=== PATIENT | female | born 1965 | race African-American/Black ===

== ENCOUNTER 2016-12-22 01:36 | Emergency (ER) | payer MEDICARE, OTHER ==
[~2016-12-22] VITALS: Ht 152.4 cm; Wt 102.5 kg
[~2016-12-22 01:36] MED LIST: CYCL10TA2 PO; DIAZEPAM10 MG PO; DULO60CA6 PO; HYDR-2758 PO; PREG100C PO; PROP10TA PO
[2016-12-22 01:53] VITALS: BP 128/76
[2016-12-22] MEDS ORDERED: SULF1TAB24 PO (02:06)
--- NOTE | 2016-12-22 02:07 | PHYS DOC ---
Past Medical History Past Medical History: Anxiety, Bipolar, Depression, Other Additional Past Medical Histor: degeneratice disc disease, fibromyalgia, CHRONIC BACK PAIN,"ANGER PROBLEMS" Past Surgical History: Other Additional Past Surgical Histo: right knee, right ankle surgery, partial hyst Alcohol Use: None Drug Use: None Adult General Chief Complaint Chief Complaint: THUMB HPI HPI 51-year-old female presenting to the emergency department after sustaining an injury to her left thumb. She reports injuring it on a thorn while she was working in the garden. This occurred today around 10:00 this morning. It is associated with swelling. She does have mild pain that is nonradiating intermittent and without alleviating factors. She is been using ice intermittently. She also has developed a mild rash that she believes is poison oak or poison marin on her arms. Review of systems is negative for fevers chills cough nausea vomiting. All other review of systems is negative unless otherwise noted in history of present illness. Pertinent physical exam findings: The patient's left thumb has mild swelling of his thumb with mild erythema. No fluctuant masses present. No streaking. She also has a mild maculopapular rash on the upper extremities bilaterally consistent with contact dermatitis. Otherwise her exam is unremarkable. ED course: 51-year-old female presenting to the emergency department with an injury to her left thumb from a thorn. I recommended starting her on Bactrim. I did consider sporotrichosis given the mechanism of injury however at this time we will initiate antibiotic therapy as this is more likely. The patient was then discharged home in stable condition to follow up with their primary care physician over the next 2-3 days. They were to return if their symptoms worsened or if they were concerned for any reason. [id number] discharge instructions and return precautions were given. Patient's questions were answered to their satisfaction. Patient is comfortable plan. Review of Systems Review of Systems SEE ABOVE. Allergies Allergies Allergies Coded Allergies Type Severity Reaction Last Updated Verified No Known Drug Allergies 11/10/13 No Physical Exam Physical Exam Constitutional: Well developed, well nourished, no acute distress, non-toxic appearance. [] HENT: Normocephalic, atraumatic, bilateral external ears normal, oropharynx moist, no oral exudates, nose normal. [] Eyes: PERRLA, EOMI, conjunctiva normal, no discharge. [] Neck: Normal range of motion, no tenderness, supple, no stridor. [] Cardiovascular:Heart rate regular rhythm, no murmur [] Lungs & Thorax: Bilateral breath sounds clear to auscultation [] Abdomen: Bowel sounds normal, soft, no tenderness, no masses, no pulsatile masses. [] Skin: Warm, dry. see above Back: No tenderness, no CVA tenderness. [] Extremities: see above Neurologic: Alert and oriented X 3, normal motor function, normal sensory function, no focal deficits noted. [] Psychologic: Affect normal, judgement normal, mood normal. [] Current Patient Data Vital Signs Vital Signs Date Time Temp Pulse Resp B/P (MAP) Pulse Ox O2 Delivery O2 Flow Rate FiO2 12/22/16 01:53 97.6 81 20 128/76 (93) 96 Room Air 97.6 EKG EKG [] Radiology/Procedures Radiology/Procedures [] Course & Med Decision Making Course & Med Decision Making Pertinent Labs and Imaging studies reviewed. (See chart for details) [] Dragon Disclaimer Dragon Disclaimer This electronic medical record was generated, in whole or in part, using a voice recognition dictation system. Departure Departure Impression: Primary Impression: Cellulitis Additional Impression: Contact dermatitis Disposition: HOME, SELF-CARE Condition: STABLE Referrals: TAD COTA MD (PCP) Patient Instructions: Cellulitis, Contact Dermatitis Additional Instructions: Thank you for allowing us to participate in your care today. Followup with your primary care physician in 3 days if your symptoms do not improve. If you do not have a primary care provider you can ask for a list of our primary care providers. Return to the emergency department you have any new or concerning findings. This should be evaluated by the primary care physician and any necessary consulting services for continued management within a few days after discharge. Return to emergency room if you have any new or concerning symptoms including but not limited to fever, chills, nausea, vomiting, intractable pain, any new rashes, chest pain, shortness of air, uncontrolled bleeding, difficulty breathing, and/or vision loss. Scripts Sulfamethoxazole/Trimethoprim (BACTRIM DS TABLET) 1 Each Tablet 1 TAB PO BID, #14 TAB Prov: BRIDGETTE KELLY MD 12/22/16 Problem Qualifiers BRIDGETTE KELLY MD Dec 22, 2016 02:06
== END 2016-12-22 02:38 | disposition home or self-care (01) ==
LOC: ER 01:36
DX: L03.012 Cellulitis of left finger (principal); L25.9 Unspecified contact dermatitis, unspecified cause; F41.9 Anxiety disorder, unspecified; F31.9 Bipolar disorder, unspecified; M79.7 Fibromyalgia; G89.29 Other chronic pain
CPT/HCPCS: 99283

== ENCOUNTER → 2018-01-08 | Outpatient (CLI) | payer MEDICARE | END | disposition home or self-care (01) | LOC: MAMMO 10:30 | DX: Z12.31 Encounter for screening mammogram for malignant neoplasm of breast (principal) | CPT/HCPCS: 77063; 77067 ==

== ENCOUNTER → 2018-01-20 | Outpatient (CLI) | payer MEDICARE | END | disposition home or self-care (01) | LOC: RAD 11:47 | DX: M17.11 Unilateral primary osteoarthritis, right knee (principal); M94.261 Chondromalacia, right knee; M25.461 Effusion, right knee; M71.21 Synovial cyst of popliteal space [Baker], right knee | CPT/HCPCS: 73721; 77073 ==

== ENCOUNTER → 2018-01-30 | Outpatient (CLI) | payer MEDICARE | END | disposition home or self-care (01) | LOC: RAD 07:59 | DX: S83.281A Other tear of lateral meniscus, current injury, right knee, initial encounter (principal); S83.241A Other tear of medial meniscus, current injury, right knee, initial encounter; M17.11 Unilateral primary osteoarthritis, right knee; M71.21 Synovial cyst of popliteal space [Baker], right knee; M25.461 Effusion, right knee; X58.XXXA Exposure to other specified factors, initial encounter; Y93.89 Activity, other specified; Y92.89 Other specified places as the place of occurrence of the external cause; Y99.8 Other external cause status | CPT/HCPCS: 73721; 77073 ==

== ENCOUNTER → 2018-02-03 | Outpatient (CLI) | payer MEDICARE ==
[2018-02-03 08:44] LABS: ADD MAN DIFF? NO
[2018-02-03 08:48] LABS: BASO % 1 % (0-3); EOS # 0.3 x10^3/uL (0.0-0.7); EOS % 7 % (0-3); HEMATOCRIT 39.7 % (36.0-47.0); HEMOGLOBIN 13.6 g/dL (12.0-15.5); LYMPH # 2.1 x10^3/uL (1.0-4.8); LYMPH % 46 % (24-48); MEAN CORPUSCULAR HEMOGLOBIN 32 pg (25-35); MEAN CORPUSCULAR HGB CONC 34 g/dL (31-37); MEAN CORPUSCULAR VOLUME 93 fL (79-100); MONO # 0.6 x10^3/uL (0.0-1.1); MONO % 12 % (0-9); NEUT # 1.7 x10^3uL (1.8-7.7); NEUT % 35 % (31-73); PLATELET COUNT 226 x10^3/uL (140-400); RED BLOOD COUNT 4.25 x10^6/uL (3.50-5.40); RED CELL DISTRIBUTION WIDTH 14.3 % (11.5-14.5); WHITE BLOOD COUNT 4.7 x10^3/uL (4.0-11.0)
[2018-02-03 08:57] LABS: INR 0.9 (0.8-1.1); PARTIAL THROMBOPLASTIN TIME 23 SEC (24-38); PROTHROMBIN TIME PATIENT 11.6 SEC (11.7-14.0)
[2018-02-03 09:03] LABS: ALBUMIN 3.5 g/dL (3.4-5.0); ANION GAP 7 (6-14); BLOOD UREA NITROGEN 18 mg/dL (7-20); CALCIUM 8.7 mg/dL (8.5-10.1); CARBON DIOXIDE 28 mmol/L (21-32); CHLORIDE 103 mmol/L (98-107); CREATININE 0.8 mg/dL (0.6-1.0); GFR 90.8; GLUCOSE 76 mg/dL (70-99); POTASSIUM 4.3 mmol/L (3.5-5.1); SODIUM 138 mmol/L (136-145)
[2018-02-03 11:38] LABS: SEDIMENTATION RATE 10 (0-25)
[2018-02-03 12:54] LABS: BILIRUBIN,URINE NEGATIVE (NEG); CLARITY,URINE CLEAR; COLOR,URINE YELLOW; GLUCOSE,URINE NEGATIVE (NEG); NITRITE,URINE NEGATIVE (NEG); PH,URINE 5.5; PROTEIN,URINE NEGATIVE (NEG-TRACE); UROBILINOGEN,URINE 0.2 mg/dL (0.2 mg/dL)
[2018-02-03 13:01] LABS: BACTERIA,URINE 0 /HPF (0-FEW); RBC,URINE 0 /HPF (0-2); SQUAMOUS EPITHELIAL CELL,UR FEW /LPF; WBC,URINE OCC /HPF (0-4)
[2018-02-04 10:42] LABS: MRSA BY PCR Negative (Negative)
== END | disposition home or self-care (01) ==
LOC: SURGPAT 12:44
DX: Z01.818 Encounter for other preprocedural examination (principal); M17.0 Bilateral primary osteoarthritis of knee; I10 Essential (primary) hypertension; J84.10 Pulmonary fibrosis, unspecified
CPT/HCPCS: 36415; 71046; 80048; 81001; 82040; 85025; 85610; 85651; 85730; 87641

== ENCOUNTER 2019-12-11 14:26 | Emergency (ER) | payer MEDICARE ==
[~2019-12-11] VITALS: Ht 160 cm; Wt 91.8 kg
[~2019-12-11 14:26] MED LIST changes: +ACET500T68 PO; +GABA600T7 PO; -HYDR-2758 PO; +HYDR-2761 PO; +MULT-445 PO; +SULF1TAB24 PO
[2019-12-11 15:18] VITALS: BP 200/105
[2019-12-11 15:25] LABS: BASO % 1 % (0-3); EOS # 0.1 x10^3/uL (0.0-0.7); EOS % 2 % (0-3); HEMATOCRIT 44.2 % (36.0-47.0); HEMOGLOBIN 14.8 g/dL (12.0-15.5); LYMPH # 2.5 x10^3/uL (1.0-4.8); LYMPH % 44 % (24-48); MEAN CORPUSCULAR HEMOGLOBIN 31 pg (25-35); MEAN CORPUSCULAR HGB CONC 33 g/dL (31-37); MEAN CORPUSCULAR VOLUME 93 fL (79-100); MONO # 0.5 x10^3/uL (0.0-1.1); MONO % 10 % (0-9); NEUT # 2.5 x10^3/uL (1.8-7.7); NEUT % 43 % (31-73); PLATELET COUNT 284 x10^3/uL (140-400); RED BLOOD COUNT 4.73 x10^6/uL (3.50-5.40); RED CELL DISTRIBUTION WIDTH 14.5 % (11.5-14.5); WHITE BLOOD COUNT 5.7 x10^3/uL (4.0-11.0)
[2019-12-11 15:33] LABS: CALCIUM 9.2 mg/dL (8.5-10.1); GFR 69.7; POTASSIUM 4.5 mmol/L (3.5-5.1)
--- NOTE | 2019-12-11 15:34 | PHYS DOC ---
Past Medical History Past Medical History: Anxiety, Bipolar, Depression, Other Additional Past Medical Histor: degeneratice disc disease, fibromyalgia,CHRONIC BACK PAIN,"ANGER PROBLEMS" Past Surgical History: Oophorectomy, Other Additional Past Surgical Histo: right knee, right ankle surgery, partial hyst Smoking Status: Never Smoker Alcohol Use: Occasionally Drug Use: None General Adult EDM: Chief Complaint: MULTIPLE COMPLAINTS HPI: HPI: Patient is a 54 year old female who presents to the ED with a chief complaint of a dry cough for the last 3 days. Patient denies fever, chills, nausea, vomiting, diarrhea, dysuria, chest pain. Patient does state that she has a history of chronic back pain. Patient states that she is a former smoker but quit 30 years ago. Patient also states that she does not use breathing treatments at home. Patient does not use any oxygen at home. Review of Systems: Review of Systems: Constitutional: Denies fever or chills. [] Eyes: Denies change in visual acuity. [] HENT: Denies nasal congestion or sore throat. [] Respiratory: Complains of cough Cardiovascular: Denies chest pain or edema. [] GI: Denies abdominal pain, nausea, vomiting, bloody stools or diarrhea. [] : Denies dysuria. [] Musculoskeletal: Denies back pain or joint pain. [] Neurologic: Denies headache, focal weakness or sensory changes. [] Heart Score: Risk Factors: Risk Factors: DM, Current or recent (<one month) smoker, HTN, HLP, family history of CAD, obesity. Risk Scores: Score 0 - 3: 2.5% MACE over next 6 weeks - Discharge Home Score 4 - 6: 20.3% MACE over next 6 weeks - Admit for Clinical Observation Score 7 - 10: 72.7% MACE over next 6 weeks - Early Invasive Strategies Allergies: Allergies: Allergies Coded Allergies Type Severity Reaction Last Updated Verified No Known Medication Allergies Allergy Unknown 02/17/18 Yes ibuprofen Adverse Reaction Severe Nausea and Vomiting 02/17/18 Yes Physical Exam: PE: Constitutional: Well developed, well nourished, no acute distress, non-toxic appearance. [] HENT: Normocephalic, atraumatic Eyes: EOMI Neck: Normal range of motion, no tenderness, supple Cardiovascular:Heart rate regular rhythm, no murmur [] Lungs & Thorax: Bilateral breath sounds clear to auscultation [] Abdomen: Bowel sounds normal, soft, no tenderness Back: No tenderness, no CVA tenderness. [] Extremities: No tenderness, no cyanosis, no clubbing, ROM intact, no edema. [] Neurologic: Alert and oriented X 3 Current Patient Data: Labs: Laboratory Tests Test 12/11/19 15:15 White Blood Count 5.7 x10^3/uL (4.0-11.0) Red Blood Count 4.73 x10^6/uL (3.50-5.40) Hemoglobin 14.8 g/dL (12.0-15.5) Hematocrit 44.2 % (36.0-47.0) Mean Corpuscular Volume 93 fL (79-100) Mean Corpuscular Hemoglobin 31 pg (25-35) Mean Corpuscular Hemoglobin Concent 33 g/dL (31-37) Red Cell Distribution Width 14.5 % (11.5-14.5) Platelet Count 284 x10^3/uL (140-400) Neutrophils (%) (Auto) 43 % (31-73) Lymphocytes (%) (Auto) 44 % (24-48) Monocytes (%) (Auto) 10 % (0-9) H Eosinophils (%) (Auto) 2 % (0-3) Basophils (%) (Auto) 1 % (0-3) Neutrophils # (Auto) 2.5 x10^3/uL (1.8-7.7) Lymphocytes # (Auto) 2.5 x10^3/uL (1.0-4.8) Monocytes # (Auto) 0.5 x10^3/uL (0.0-1.1) Eosinophils # (Auto) 0.1 x10^3/uL (0.0-0.7) Basophils # (Auto) 0.0 x10^3/uL (0.0-0.2) Laboratory Tests 12/11/19 15:15 Vital Signs: Vital Signs Date Time Temp Pulse Resp B/P (MAP) Pulse Ox O2 Delivery O2 Flow Rate FiO2 12/11/19 14:35 97.1 85 20 166/79 (108) 100 Room Air 97.1 EKG: EKG: EKG interpretation: 14: 37 on 12/11/2019 HR: 87 Normal sinus rhythm Regular intervals Normal axis Nonspecific ST changes Radiology/Procedures: Radiology/Procedures: [] Course & Med Decision Making: Course & Med Decision Making Pertinent Labs and Imaging studies reviewed. (See chart for details) Ordered labs, chest x-ray, EKG, troponin Patient's vital signs stable in the ER. Patient is afebrile. EKG does not show any acute changes. Dragon Disclaimer: Dragon Disclaimer: This electronic medical record was generated, in whole or in part, using a voice recognition dictation system. Departure Departure Impression: Primary Impression: Bronchitis Disposition: 01 HOME, SELF-CARE Condition: STABLE Referrals: RAMESH DELACRUZ MD (PCP) Patient Instructions: Acute Bronchitis Additional Instructions: Please return to the ER if symptoms worsen or if any concerns. Please follow-up with your PCP in 1 to 2 days. Scripts Benzonatate (TESSALON PERLE) 100 Mg Capsule 1 CAP PO TID PRN for Cough for 5 Days, CAP Prov: SAÚL BONDS DO 12/11/19 SAÚL BONDS DO December 11, 2019 15:34
[2019-12-11 15:39] LABS: ALBUMIN 3.8 g/dL (3.4-5.0); ALBUMIN/GLOBULIN RATIO 1.2 (1.0-1.7); TOTAL BILIRUBIN 0.4 mg/dL (0.2-1.0); TOTAL PROTEIN 7.1 g/dL (6.4-8.2)
--- NOTE | 2019-12-11 16:34 | RAD ---
AP chest. HISTORY: Cough AP view was taken of the chest. There is a granuloma on the right. Lungs are clear. Heart is normal in size. There is no effusion. There is hypertrophic change in the spine. IMPRESSION: 1. No acute chest disease. Electronically signed by: Madi Wakefield MD (12/11/2019 4:31 PM) [id number]
[2019-12-11] MEDS ORDERED: BENZ100C PO (16:42)
--- NOTE | 2019-12-13 10:23 | EKG ---
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
== END 2019-12-11 16:48 | disposition home or self-care (01) ==
LOC: ER 14:26
DX: J40 Bronchitis, not specified as acute or chronic (principal); M54.9 Dorsalgia, unspecified; F41.9 Anxiety disorder, unspecified; F32.9 Major depressive disorder, single episode, unspecified; M79.7 Fibromyalgia; G89.29 Other chronic pain; Z90.89 Acquired absence of other organs; Z98.890 Other specified postprocedural states; Z88.6 Allergy status to analgesic agent
CPT/HCPCS: 36415; 71045; 80053; 84484; 85025; 93005; 99285; U0003-CS

== ENCOUNTER 2020-03-17 16:10 | Emergency (ER) | payer MEDICARE ==
[~2020-03-17] VITALS: Ht 165.1 cm; Wt 95.5 kg
[~2020-03-17 16:10] MED LIST changes: +BENZ100C PO
[2020-03-17 16:51] LABS: BASO # 0.1 x10^3/uL (0.0-0.2); BASO % 2 % (0-3); EOS # 0.2 x10^3/uL (0.0-0.7); EOS % 5 % (0-3); HEMATOCRIT 41.5 % (36.0-47.0); LYMPH # 2.7 x10^3/uL (1.0-4.8); LYMPH % 62 % (24-48); MEAN CORPUSCULAR HEMOGLOBIN 32 pg (25-35); MEAN CORPUSCULAR HGB CONC 34 g/dL (31-37); MEAN CORPUSCULAR VOLUME 95 fL (79-100); MONO # 0.4 x10^3/uL (0.0-1.1); MONO % 10 % (0-9); NEUT # 0.9 x10^3/uL (1.8-7.7); NEUT % 22 % (31-73); PLATELET COUNT 288 x10^3/uL (140-400); RED BLOOD COUNT 4.38 x10^6/uL (3.50-5.40); RED CELL DISTRIBUTION WIDTH 14.3 % (11.5-14.5); WHITE BLOOD COUNT 4.3 x10^3/uL (4.0-11.0)
[2020-03-17 16:59] LABS: PROTHROMBIN TIME PATIENT 12.3 SEC (11.7-14.0)
[2020-03-17 17:03] LABS: CALCIUM 8.5 mg/dL (8.5-10.1); CREATININE 0.9 mg/dL (0.6-1.0); GFR 78.7; POTASSIUM 4.4 mmol/L (3.5-5.1)
[2020-03-17 17:04] LABS: D-DIMER 0.57 ug/mlFEU (0.00-0.50)
--- NOTE | 2020-03-17 17:09 | RAD ---
EXAM: CT Head without IV contrast INDICATION: Reason: syncopal episode / Spl. Instructions: / History: TECHNIQUE: Multi-detector row CT images were obtained of the head without the use of IV contrast. All CT scans performed at this facility utilize dose optimization techniques as appropriate to the exam, including the following: Automated exposure control and adjustment of the mA and/or KV according to patient size (this includes techniques or standardized protocols for targeted exams where dose is indication/reason for exam). COMPARISON: None FINDINGS: BRAIN PARENCHYMA: No evidence of acute intraparenchymal hemorrhage or infarct. Mild generalized parenchymal volume loss and white matter low density compatible with chronic ischemic microvascular changes present. VENTRICLES & EXTRA-AXIAL SPACES: Ventricles are within normal limits. Basilar cisterns are patent. No pathologic extra-axial fluid collection or mass. ORBITS: Orbital contents are unremarkable. SINUSES: Visualized paranasal sinuses and mastoid air cells are clear. OSSEOUS & SOFT TISSUES: Calvarium and skull base are intact. IMPRESSION: No acute intracranial pathology. Electronically signed by: Jameel Mar MD (03/17/2020 5:06 PM) [id number]
[2020-03-17 17:19] LABS: ALBUMIN 3.6 g/dL (3.4-5.0); ALBUMIN/GLOBULIN RATIO 1.1 (1.0-1.7); C-REACTIVE PROTEIN 3.3 mg/L (0-3.3); MAGNESIUM 2.5 mg/dL (1.8-2.4); TOTAL BILIRUBIN 0.5 mg/dL (0.2-1.0); TOTAL PROTEIN 6.8 g/dL (6.4-8.2)
--- NOTE | 2020-03-17 17:20 | RAD ---
CHEST AP ONLY History: Reason: chest pain / Spl. Instructions: / History: Comparison: December 11, 2019 Findings: Hazy appearance of the left lung compared to the right likely due to technique. No consolidation or pleural effusion. No pneumothorax. Normal heart size. Calcified right midlung nodule, likely prior granulomatous disease, unchanged. Impression: 1. Hazy appearance of the left lung compared to the right likely due to technique. PA and lateral view of the chest can better assess if clinically indicated. Electronically signed by: Landry Hall DO (03/17/2020 5:17 PM) [id number]
[2020-03-17 17:22] LABS: % BASOS 1 % (0-3); % EOS 5 % (0-5); % LYMPHS 58 % (24-48); % MONOS 10 % (0-10); % SEGS 26 % (35-66); PLT ESTIMATE ADEQUATE (ADEQUATE)
--- NOTE | 2020-03-17 17:36 | PHYS DOC ---
Past Medical History Past Medical History: Anxiety, Bipolar, Depression, Other Additional Past Medical Histor: degeneratice disc disease, fibromyalgia,CHRONIC BACK PAIN,"ANGER PROBLEMS" Past Surgical History: Oophorectomy, Other Additional Past Surgical Histo: right knee, right ankle surgery, partial hyst Smoking Status: Never Smoker Alcohol Use: Occasionally Drug Use: None General Adult EDM: Chief Complaint: SYNCOPE HPI: HPI: Patient is a 54 year old AA female who presents to the ER for evaluation after a syncopal episode. Per EMS pt was being ticketed for stealing at [employer] when she passed out. Pt states she is unsure of what happened. Patient is refusing to answer the majority of my questions therefore the HPI is limited. She denies any recent fever, cough, shortness of breath, headache, chest pain, nausea, or vomiting. Review of Systems: Review of Systems: Constitutional: Denies fever or chills. [] Eyes: Denies change in visual acuity. [] HENT: Denies nasal congestion or sore throat. [] Respiratory: Denies cough or shortness of breath. [] Cardiovascular: Denies chest pain GI: Denies abdominal pain, nausea, vomiting, or diarrhea. [] Musculoskeletal: Denies back pain or joint pain. [] Neurologic: See HPI Psychiatric: Denies depression or anxiety. [] Heart Score: Risk Factors: Risk Factors: DM, Current or recent (<one month) smoker, HTN, HLP, family hi story of CAD, obesity. Risk Scores: Score 0 - 3: 2.5% MACE over next 6 weeks - Discharge Home Score 4 - 6: 20.3% MACE over next 6 weeks - Admit for Clinical Observation Score 7 - 10: 72.7% MACE over next 6 weeks - Early Invasive Strategies Allergies: Allergies: Allergies Coded Allergies Type Severity Reaction Last Updated Verified No Known Medication Allergies Allergy Unknown 02/17/18 Yes ibuprofen Adverse Reaction Severe Nausea and Vomiting 02/17/18 Yes Physical Exam: PE: Constitutional: Well developed, well nourished, no acute distress, non-toxic appearance. [] HENT: Normocephalic, atraumatic, bilateral external ears normal, oropharynx moist, no oral exudates, nose normal. [] Eyes: PERRLA, conjunctiva injected, no discharge. [] Neck: Normal range of motion, no stridor. [] Cardiovascular:Heart rate regular rhythm, no murmur [] Lungs & Thorax: Bilateral breath sounds clear to auscultation, lungs CTA [] Abdomen: soft, no tenderness, no masses, no pulsatile masses. [] Skin: Warm, dry, no erythema, no rash. [] Back: No tenderness, no CVA tenderness. [] Extremities: No cyanosis, no clubbing, ROM intact, no edema. [] Neurologic: Alert and oriented X 3, normal motor function, normal sensory function, no focal deficits noted. [] Psychologic: Affect normal, judgement normal, mood normal. [] Current Patient Data: Labs: Laboratory Tests Test 03/17/20 16:30 White Blood Count 4.3 x10^3/uL (4.0-11.0) Red Blood Count 4.38 x10^6/uL (3.50-5.40) Hemoglobin 14.0 g/dL (12.0-15.5) Hematocrit 41.5 % (36.0-47.0) Mean Corpuscular Volume 95 fL (79-100) Mean Corpuscular Hemoglobin 32 pg (25-35) Mean Corpuscular Hemoglobin Concent 34 g/dL (31-37) Red Cell Distribution Width 14.3 % (11.5-14.5) Platelet Count 288 x10^3/uL (140-400) Neutrophils (%) (Auto) 22 % (31-73) L Lymphocytes (%) (Auto) 62 % (24-48) H Monocytes (%) (Auto) 10 % (0-9) H Eosinophils (%) (Auto) 5 % (0-3) H Basophils (%) (Auto) 2 % (0-3) Neutrophils # (Auto) 0.9 x10^3/uL (1.8-7.7) L Lymphocytes # (Auto) 2.7 x10^3/uL (1.0-4.8) Monocytes # (Auto) 0.4 x10^3/uL (0.0-1.1) Eosinophils # (Auto) 0.2 x10^3/uL (0.0-0.7) Basophils # (Auto) 0.1 x10^3/uL (0.0-0.2) Segmented Neutrophils % 26 % (35-66) L Lymphocytes % 58 % (24-48) H Monocytes % 10 % (0-10) Eosinophils % 5 % (0-5) Basophils % 1 % (0-3) Platelet Estimate Adequate (ADEQUATE) Prothrombin Time 12.3 SEC (11.7-14.0) Prothrombin Time INR 1.0 (0.8-1.1) Activated Partial Thromboplast Time 24 SEC (24-38) D-Dimer (Yessica) 0.57 ug/mlFEU (0.00-0.50) H Sodium Level 142 mmol/L (136-145) Potassium Level 4.4 mmol/L (3.5-5.1) Chloride Level 105 mmol/L (98-107) Carbon Dioxide Level 27 mmol/L (21-32) Anion Gap 10 (6-14) Blood Urea Nitrogen 11 mg/dL (7-20) Creatinine 0.9 mg/dL (0.6-1.0) Estimated GFR (Cockcroft-Gault) 78.7 BUN/Creatinine Ratio 12 (6-20) Glucose Level 80 mg/dL (70-99) Calcium Level 8.5 mg/dL (8.5-10.1) Magnesium Level 2.5 mg/dL (1.8-2.4) H Ferritin 121 ng/mL (8-252) Total Bilirubin 0.5 mg/dL (0.2-1.0) Aspartate Amino Transferase (AST) 34 U/L (15-37) Alanine Aminotransferase (ALT) 30 U/L (14-59) Alkaline Phosphatase 55 U/L (46-116) Creatine Kinase 173 U/L (26-192) Creatine Kinase MB (Mass) 1.8 ng/mL (0.0-3.6) Creatine Kinase MB Relative Index 1.0 % (0-4) Troponin I Quantitative < 0.017 ng/mL (0.000-0.055) C-Reactive Protein, Quantitative 3.3 mg/L (0-3.3) Total Protein 6.8 g/dL (6.4-8.2) Albumin 3.6 g/dL (3.4-5.0) Albumin/Globulin Ratio 1.1 (1.0-1.7) Lipase 108 U/L (73-393) Laboratory Tests 03/17/20 16:30 Laboratory Tests 03/17/20 16:30 Vital Signs: Vital Signs Date Time Temp Pulse Resp B/P (MAP) Pulse Ox O2 Delivery O2 Flow Rate FiO2 03/17/20 16:11 98.2 100 13 134/65 (88) 98 Room Air 98.2 EKG: EK-sinus rhythm, rate 98, normal EKG, read by Dr. Paez[] Radiology/Procedures: Radiology/Procedures: []PROCEDURE: CT HEAD WO CONTRAST EXAM: CT Head without IV contrast INDICATION: Reason: syncopal episode / Spl. Instructions: / History: TECHNIQUE: Multi-detector row CT images were obtained of the head without the use of IV contrast. All CT scans performed at this facility utilize dose optimization techniques as appropriate to the exam, including the following: Automated exposure control and adjustment of the mA and/or KV according to patient size (this includes techniques or standardized protocols for targeted exams where dose is indication/reason for exam). COMPARISON: None FINDINGS: BRAIN PARENCHYMA: No evidence of acute intraparenchymal hemorrhage or infarct. Mild generalized parenchymal volume loss and white matter low density compatible with chronic ischemic microvascular changes present. VENTRICLES & EXTRA-AXIAL SPACES: Ventricles are within normal limits. Basilar cisterns are patent. No pathologic extra-axial fluid collection or mass. ORBITS: Orbital contents are unremarkable. SINUSES: Visualized paranasal sinuses and mastoid air cells are clear. OSSEOUS & SOFT TISSUES: Calvarium and skull base are intact. IMPRESSION: No acute intracranial pathology. PROCEDURE: CHEST AP ONLY CHEST AP ONLY History: Reason: chest pain / Spl. Instructions: / History: Comparison: December 11, 2019 Findings: Hazy appearance of the left lung compared to the right likely due to technique. No consolidation or pleural effusion. No pneumothorax. Normal heart size. Calcified right midlung nodule, likely prior granulomatous disease, unchanged. Impression: 1. Hazy appearance of the left lung compared to the right likely due to technique. PA and lateral view of the chest can better assess if clinically indicated. [] Course & Med Decision Making: Course & Med Decision Making Pertinent Labs and Imaging studies reviewed. (See chart for details) 54-year-old female presents to the emergency department following a syncopal episode while being confronted about shoplifting today. CBC, CMP were unremarkable, the patient's d-dimer was elevated at 0.57; UA was unremarkable; UDS was positive for opiates and alcohol. CT patient's head revealed no acute findings, chest x-ray had a hazy appearance likely due to technique. The patient refused a CT of her chest after I informed her of her elevated d- dimer. The patient states she wanted to leave right now she did not want to continue her treatment. I told the patient she would have to sign out AMA;. I advised the patient that she may have a blood clot in her lung that could be why she passed out patient reports if she feels worse she will return. Swathi Disclaimer: Swathi Disclaimer: This electronic medical record was generated, in whole or in part, using a voice recognition dictation system. Departure Departure Impression: Primary Impression: Left against medical advice Disposition: 07 AGAINST MEDICAL ADVICE Condition: STABLE Referrals: RAMESH DELACRUZ MD (PCP) Justicifation of Admission Dx: Justifications for Admission: Justification of Admission Dx: N/A SHAUNA JASSO APRN Mar 17, 2020 17:36
--- NOTE | 2020-03-17 17:36 | EKG ---
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
[2020-03-17 17:49] LABS: BILIRUBIN,URINE NEGATIVE (NEG); CLARITY,URINE CLEAR; COLOR,URINE YELLOW; NITRITE,URINE NEGATIVE (NEG); PH,URINE 6.5 (<5.0-8.0); PROTEIN,URINE NEGATIVE (NEG-TRACE); UROBILINOGEN,URINE 0.2 mg/dL (0.2 mg/dL)
[2020-03-17 17:54] LABS: BARBITURATES NEG (NEG); BENZODIAZEPINES NEG (NEG); CANNABINOIDS NEG (NEG); COCAINE NEG (NEG); METHADONE NEG (NEG); OPIATES POS (NEG); PHENCYCLIDINE NEG (NEG)
[2020-03-17 17:55] LABS: AMPHETAMINE/METHAMPHETAMINE NEG (NEG)
[2020-03-17 17:56] LABS: BACTERIA,URINE 0 /HPF (0-FEW); HYALINE CASTS, URINE FEW /HPF; RBC,URINE OCC /HPF (0-2); SQUAMOUS EPITHELIAL CELL,UR FEW /LPF; WBC,URINE OCC /HPF (0-4)
[2020-03-17 18:08] VITALS: BP 122/71
[2020-03-17] MEDS ORDERED: IOHEXOL 350 MG/ML 100 ML VIAL. IV ONE (18:15)
== END 2020-03-17 18:28 | disposition left against medical advice (07) ==
LOC: ER 16:10
DX: R55 Syncope and collapse (principal); F41.9 Anxiety disorder, unspecified; F32.9 Major depressive disorder, single episode, unspecified; G89.29 Other chronic pain; M79.7 Fibromyalgia; Z90.89 Acquired absence of other organs; Z98.890 Other specified postprocedural states; Z88.6 Allergy status to analgesic agent
CPT/HCPCS: 36415; 70450; 71045; 80053; 80307; 81001; 82553; 82728; 83690; 83735; 84484; 85007; 85025; 85379; 85610; 85730; 86140; 93005; 99285

== ENCOUNTER → 2021-01-18 | Outpatient (CLI) | payer MEDICARE ==
--- NOTE | 2021-01-18 15:48 | RAD ---
[facility] BILAT SCREEN+ELENO 01/18/2021 9:45 AM INDICATION: Asymptomatic screening mammogram. COMPARISON: 01/08/2018 TECHNIQUE: 3D tomosynthesis was performed in CC and MLO projections. 2D views were obtained from the 3D data. CAD was utilized as needed. FINDINGS: Breast density: Category B: There are scattered areas of fibroglandular density. Right breast: There are no suspicious microcalcifications, masses or areas of architectural distortio n. Left breast: There are no suspicious microcalcifications, masses or areas of architectural distortion . Bilateral mammogram is compared to prior examinations appears unchanged. IMPRESSION: Negative bilateral mammogram. BI-RADS category: 1; Negative Recommendations: Recommend annual screening mammography in one year. Electronically signed by: Tanika Navarro MD (01/18/2021 3:45 PM) [id number]
== END ==
LOC: MAMMO 09:40
PROVIDERS: ATTEND Family Medicine
DX: Z12.31 Encounter for screening mammogram for malignant neoplasm of breast (principal)
CPT/HCPCS: 77063; 77067

== ENCOUNTER 2021-06-26 15:24 | Emergency (ER) | payer MEDICARE ==
[~2021-06-26] VITALS: Ht 160 cm; Wt 79.5 kg
[~2021-06-26 15:24] MED LIST changes: +CYCL10TA19 PO; -CYCL10TA2 PO; -DULO60CA6 PO; +DULO60CA7 PO
[2021-06-26] MEDS ORDERED: IV NORMAL SALINE 1000ML BAG 1,000 ML IV SCH (15:45)
--- NOTE | 2021-06-26 16:06 | PHYS DOC ---
Past Medical History Past Medical History: Anxiety, Bipolar, Depression, Other Additional Past Medical Histor: degeneratice disc disease, fibromyalgia,CHRONIC BACK PAIN,"ANGER PROBLEMS" Past Surgical History: Oophorectomy, Other Additional Past Surgical Histo: right knee, right ankle surgery, partial hyst Smoking Status: Never Smoker Alcohol Use: Heavy Additional Information: reports drinking 2-3 times weekly Drug Use: None Social History Narrative: denies General Adult EDM: Chief Complaint: ALCOHOL INTOXICATION HPI: HPI: Patient is a 56-year-old female who presents to the emergency department via EMS following a fall. Per EMS patient was getting out of her car in the [employer] parking lot when she fell. She is unsure if she lost consciousness. She is admitting to drinking 1 pint of alcohol today. She denies any blood thinners. Patient is sleepy in the emergency department and is responsive to painful stimulation. It appears that patient has a hematoma and small abrasion to her left eyebrow and cheek. Patient does not recall falling and is unsure of how she fell. Patient denies any vomiting, neck or back pain. Review of Systems: Review of Systems: HENT: See HPI GI: See HPI Musculoskeletal: See HPI Integument: See HPI Neurologic: See HPI Heart Score: C/O Chest Pain: N/A Risk Factors: Risk Factors: DM, Current or recent (<one month) smoker, HTN, HLP, family history of CAD, obesity. Risk Scores: Score 0 - 3: 2.5% MACE over next 6 weeks - Discharge Home Score 4 - 6: 20.3% MACE over next 6 weeks - Admit for Clinical Observation Score 7 - 10: 72.7% MACE over next 6 weeks - Early Invasive Strategies Current Medications: Current Medications Medications (Trade) Dose Ordered Sig/David Start Time Stop Time Status Last Admin Dose Admin Sodium Chloride 1,000 ml @ 1,000 mls/hr Q1H 06/26/21 15:45 06/26/21 16:44 Allergies: Allergies: Allergies Coded Allergies Type Severity Reaction Last Updated Verified ibuprofen Adverse Reaction Severe Nausea and Vomiting 02/17/18 Yes valdecoxib Adverse Reaction Intermediate NAUSEA, VOMITING 06/26/21 Yes Physical Exam: PE: Constitutional: Well developed, well nourished, no acute distress, non-toxic appearance. [] HENT: Normocephalic, atraumatic, bilateral external ears normal, oropharynx moist, no oral exudates, nose normal. [] Eyes: PERRL, EOMI, conjunctiva normal, no discharge. [] Neck: Normal range of motion, no bony spinal tenderness, no step-offs or deformities, supple, no stridor. [] Cardiovascular:Heart rate regular rhythm, no murmur [] Lungs & Thorax: Bilateral breath sounds clear to auscultation [] Abdomen: Bowel sounds normal, soft, no tenderness, no masses, no pulsatile masses. [] Skin: Warm, dry, no erythema, no rash. [] Back: No bony spinal tenderness, normal range of motion Extremities: No tenderness, no cyanosis, no clubbing, ROM intact, no edema, no pain with palpation of major joints, no pain with palpation of pelvis or hips. [] Neurologic: Alert and oriented X 3,GCS: 13, normal motor function, normal sensory function, no focal deficits noted, patient moving all 4 extremities equally. [] Psychologic: Affect normal, judgement normal, mood normal. [] Current Patient Data: Labs: Laboratory Tests Test 06/26/21 17:05 06/26/21 17:20 06/26/21 17:40 White Blood Count 6.4 x10^3/uL Red Blood Count 4.20 x10^6/uL Hemoglobin 14.0 g/dL Hematocrit 41.3 % Mean Corpuscular Volume 98 fL Mean Corpuscular Hemoglobin 33 pg Mean Corpuscular Hemoglobin Concent 34 g/dL Red Cell Distribution Width 14.2 % Platelet Count 251 x10^3/uL Neutrophils (%) (Auto) 60 % Lymphocytes (%) (Auto) 29 % Monocytes (%) (Auto) 9 % Eosinophils (%) (Auto) 2 % Basophils (%) (Auto) 1 % Neutrophils # (Auto) 3.8 x10^3/uL Lymphocytes # (Auto) 1.8 x10^3/uL Monocytes # (Auto) 0.6 x10^3/uL Eosinophils # (Auto) 0.1 x10^3/uL Basophils # (Auto) 0.1 x10^3/uL Urine Collection Type Unknown Urine Color Yellow Urine Clarity Turbid Urine pH 6.0 Urine Specific [place] 1.010 Urine Protein Negative mg/dL Urine Glucose (UA) Negative mg/dL Urine Ketones (Stick) Negative mg/dL Urine Blood Negative Urine Nitrite Negative Urine Bilirubin Negative Urine Urobilinogen Dipstick 0.2 mg/dL Urine Leukocyte Esterase Trace Urine RBC 0 /HPF Urine WBC 1-4 /HPF Urine Squamous Epithelial Cells Few /LPF Urine Bacteria 0 /HPF Urine Hyaline Casts Few /HPF Urine Mucus Slight /LPF Urine Opiates Screen Pos Urine Methadone Screen Neg Urine Barbiturates Neg Urine Phencyclidine Screen Neg Urine Amphetamine/Methamphetamine Neg Urine Benzodiazepines Screen Neg Urine Cocaine Screen Neg Urine Cannabinoids Screen Neg Urine Ethyl Alcohol Pos Sodium Level 144 mmol/L Potassium Level 3.8 mmol/L Chloride Level 104 mmol/L Carbon Dioxide Level 26 mmol/L Anion Gap 14 Blood Urea Nitrogen 9 mg/dL Creatinine 0.9 mg/dL Estimated GFR (Cockcroft-Gault) 78.1 BUN/Creatinine Ratio 10 Glucose Level 81 mg/dL Calcium Level 8.8 mg/dL Total Bilirubin 0.2 mg/dL Aspartate Amino Transf (AST/SGOT) 31 U/L Alanine Aminotransferase (ALT/SGPT) 34 U/L Alkaline Phosphatase 61 U/L Troponin I High Sensitivity 6 ng/L Total Protein 6.8 g/dL Albumin 3.5 g/dL Albumin/Globulin Ratio 1.1 Ethyl Alcohol Level 239 mg/dL Current Medications Medications (Trade) Dose Ordered Sig/David Route PRN Reason Start Time Stop Time Status Last Admin Dose Admin Sodium Chloride 1,000 ml @ 1,000 mls/hr Q1H IV 06/26/21 15:45 06/26/21 16:44 DC 06/26/21 17:09 Vital Signs: Vital Signs Date Time Temp Pulse Resp B/P (MAP) Pulse Ox O2 Delivery O2 Flow Rate FiO2 06/26/21 15:43 98.3 82 20 127/67 (87) 94 Room Air 98.3 EKG: EKG: [] EKG performed by ER staff at 1736 shows sinus rhythm with a rate of 71, QTc of 442, no STEMI read by Dr. Alvarez at 1737. Radiology/Procedures: Radiology/Procedures: []PROCEDURE: PORTABLE CHEST 1V Single AP view of the chest. Comparison: 03/17/2020. Indication: Fall Findings: The heart is not enlarged. There is no pneumothorax or effusion. No air space or interstitial disease. Impression: 1. No acute cardiopulmonary process. Electronically signed by: Bernard Marks MD (06/26/2021 4:08 PM) [facility] DICTATED and SIGNED BY: BERNARD MARKS MD DATE: 06/26/21 [id number] PROCEDURE: CT HEAD AND CERVICAL SPINE WO CT HEAD AND C-SPINE WO, CT MAXILLOFACIAL WITHOUT CONTRAST Date: 06/26/2021 3:46 PM Clinical Indication: Reason: fall, ams / Spl. Instructions: / History: Comparison: CT head from 03/17/2020. Technique: Axial computed tomographic images were obtained of the head, maxillofacial structures, and cervical spine without contrast. Multiplanar reconstructions were performed. One or more of the following dose reduction techniques were utilized: Automated exposure control (AEC), Adjustment of mA and/or kV according to patient size, Use of iterative reconstruction technique such as ASiR, CT scan done according to ALARA and image gently/image wisely CT Head Findings: Mild generalized cerebral and cerebellar volume loss. Mild nonspecific periventricular hypoattenuation, most commonly seen with chronic small vessel ischemic disease. No intra- or extra-axial mass or fluid collection. No acute hemorrhage. The ventricles are normal in size, shape, and morphology. The bolden-white matter junction is normal. The basilar cisterns are patent. The mastoid air cells are clear. No aggressive osseous lesion or fracture. CT Face Findings: There is no acute facial bone fracture. There is a contusion/hematoma involving the left forehead and left upper eyelid. The left orbit/globe is unremarkable. The paranasal sinuses are clear. The right orbit is normal. The globes are intact. CT Cervical Spine Findings: The cervical spine is normally aligned. No acute fracture. No aggressive lytic or blastic osseous lesions. Mild to moderate multilevel degenerative disc space height loss. Multilevel mild spinal canal stenosis secondary to disc protrusions and marginal osteophytes. Multilevel mild to moderate neuroforaminal narrowing secondary to uncovertebral arthrosis. Multilevel mild to moderate facet arthrosis. The thyroid gland is normal. No cervical lymphadenopathy. Bilateral carotid atherosclerosis. The visualized aerodigestive tract is normal. The visualized portions of the lungs are clear. Impression: 1. No acute intracranial process. Soft tissue contusion/hematoma overlying the left forehead and left upper eyelid. 2. No acute facial bone fracture. 3. No acute osseous abnormality of the cervical spine Electronically signed by: Edward Gonzales DO (06/26/2021 4:22 PM) [facility] DICTATED and SIGNED BY: EDWARD GONZALES DO DATE: 06/26/21 [id number] Course & Med Decision Making: Course & Med Decision Making Pertinent Labs and Imaging studies reviewed. (See chart for details) Patient presents to the emergency department for a fall. Patient is unsure if she had a loss of consciousness, admits to 1 pint of alcohol today, no blood thinner use. Patient has a hematoma to her left for head proximal to her eyebrow and abrasions to her eyebrow and cheek. Work-up in the ER consisted of blood work, EKG, chest x-ray and CT imaging of head and neck. Imaging showed no acute findings. 173: ER nurse states that patient is reporting suicidal ideation. Patient states "I will find a way to hurt myself at home". Patient does not have a specific plan and has not attempted to hurt herself today. PAT Team consulted. 1818: CBC unremarkable, CMP unremarkable, urinalysis shows trace leuks, 1-4 whit e blood cells and no bacteria but squamous cells are noted likely contaminated. Patient's alcohol level was 239, patient was already treated with a liter of normal saline. Patient medically cleared at this time and will be evaluated by the psychiatric assessment team. 182: Upon reevaluation of patient she is alert and oriented x4 GCS of 15. Patient was notified on plan of care and psychiatric assessment team consultation. Patient states "I want to go home". I notified patient that she cannot go home because she stated that she wanted to hurt herself patient states "I do not want to hurt myself, I just want to go home and lay in bed and want to , whatever happens happens". 1999 : Patient evaluated by the psychiatric assessment team, safety plan was de veloped with patient and a member of the psychiatric assessment team. Patient to adhere with the safety plan and she was given resources to follow-up. I discussed with patient all findings and diagnostic testing as well as the need to follow-up with PCP for further evaluation and treatment or return to the ER if any new or worsening symptoms. Strict return precautions were also discussed at length. Patient voiced understanding and agreement with the plan. Patient is hemodynamically stable at the time of disposition. Dragon Disclaimer: Dragon Disclaimer: This electronic medical record was generated, in whole or in part, using a voice recognition dictation system. Departure Departure Impression: Primary Impression: Head injury Qualified Codes: S09.90XA - Unspecified injury of head, initial encounter Additional Impressions: Alcohol intoxication Qualified Codes: F10.920 - Alcohol use, unspecified with intoxication, uncomplicated Suicidal ideation Disposition: HOME / SELF CARE / HOMELESS Condition: GOOD Referrals: RAMESH DELACRUZ MD (PCP) Patient Instructions: Alcohol Intoxication, [id number], Head Injury, Adult, Suicidal Feelings, How to Help Yourself Additional Instructions: He was seen in the emergency department today for alcohol intoxication, fall and suicidal ideation. Please discontinue drinking alcohol. You should not drive a vehicle while you are drinking any alcohol. Imaging was performed of your head and neck that showed no acute findings. You have an abrasion to your left forehead as well as a hematoma. Please keep this abrasion clean and dry. Please apply ice to your hematoma. Please monitor the abrasion for any signs of infection including redness, warmth, swelling or drainage. You can take Tylenol or ibuprofen for your pain. Please increase your fluids and rest at home. You were also evaluated by member of the psychiatric assessment team for suicidal ideation. You had developed a safety plan with that number. Please adhere to the safety plan and follow-up with the resources that you were provided. Please follow-up with your primary care provider tomorrow regarding your ER visit. Please return to the emergency department if you develop head pain, neck pain, back pain, loss of bowel or bladder, numbness or tingling in your groin or down your legs, intractable nausea or vomiting, confusion, difficulty ambulating, suicidal or homicidal ideation, speech problems or any new or worsening concerns. CHEMA ALFARO [employer] Jun 26, 2021 16:06
--- NOTE | 2021-06-26 16:10 | RAD ---
Single AP view of the chest. Comparison: 03/17/2020. Indication: Fall Findings: The heart is not enlarged. There is no pneumothorax or effusion. No air space or interstitial diseas e. Impression: 1. No acute cardiopulmonary process. Electronically signed by: Bernard Marks MD (06/26/2021 4:08 PM) [facility]
--- NOTE | 2021-06-26 16:25 | RAD ---
CT HEAD AND C-SPINE WO, CT MAXILLOFACIAL WITHOUT CONTRAST Date: 06/26/2021 3:46 PM Clinical Indication: Reason: fall, ams / Spl. Instructions: / History: Comparison: CT head from 03/17/2020. Technique: Axial computed tomographic images were obtained of the head, maxillofacial structures, an d cervical spine without contrast. Multiplanar reconstructions were performed. One or more of the fol lowing dose reduction techniques were utilized: Automated exposure control (AEC), Adjustment of mA an d/or kV according to patient size, Use of iterative reconstruction technique such as ASiR, CT scan do ne according to ALARA and image gently/image wisely CT Head Findings: Mild generalized cerebral and cerebellar volume loss. Mild nonspecific periventricular hypoattenuatio n, most commonly seen with chronic small vessel ischemic disease. No intra- or extra-axial mass or fluid collection. No acute hemorrhage. The ventricles are normal in size, shape, and morphology. The bolden-white matter junction is normal. The basilar cisterns are paten t. The mastoid air cells are clear. No aggressive osseous lesion or fracture. CT Face Findings: There is no acute facial bone fracture. There is a contusion/hematoma involving the left forehead and left upper eyelid. The left orbit/globe is unremarkable. The paranasal sinuses are clear. The right orbit is normal. The globes are intact. CT Cervical Spine Findings: The cervical spine is normally aligned. No acute fracture. No aggressive lytic or blastic osseous les ions. Mild to moderate multilevel degenerative disc space height loss. Multilevel mild spinal canal stenosi s secondary to disc protrusions and marginal osteophytes. Multilevel mild to moderate neuroforaminal narrowing secondary to uncovertebral arthrosis. Multilevel mild to moderate facet arthrosis. The thyroid gland is normal. No cervical lymphadenopathy. Bilateral carotid atherosclerosis. The visu alized aerodigestive tract is normal. The visualized portions of the lungs are clear. Impression: 1. No acute intracranial process. Soft tissue contusion/hematoma overlying the left forehead and left upper eyelid. 2. No acute facial bone fracture. 3. No acute osseous abnormality of the cervical spine Electronically signed by: Dameon Gonzales DO (06/26/2021 4:22 PM) [facility]
[2021-06-26 17:21] LABS: BASO # 0.1 x10^3/uL (0.0-0.2); BASO % 1 % (0-3); EOS # 0.1 x10^3/uL (0.0-0.7); EOS % 2 % (0-3); HEMATOCRIT 41.3 % (36.0-47.0); LYMPH # 1.8 x10^3/uL (1.0-4.8); LYMPH % 29 % (24-48); MEAN CORPUSCULAR HEMOGLOBIN 33 pg (25-35); MEAN CORPUSCULAR HGB CONC 34 g/dL (31-37); MEAN CORPUSCULAR VOLUME 98 fL (79-100); MONO # 0.6 x10^3/uL (0.0-1.1); MONO % 9 % (0-9); NEUT # 3.8 x10^3/uL (1.8-7.7); NEUT % 60 % (31-73); PLATELET COUNT 251 x10^3/uL (140-400); RED CELL DISTRIBUTION WIDTH 14.2 % (11.5-14.5); WHITE BLOOD COUNT 6.4 x10^3/uL (4.0-11.0)
[2021-06-26 17:29] LABS: BILIRUBIN,URINE NEGATIVE (NEG); CLARITY,URINE TURBID; COLOR,URINE YELLOW; NITRITE,URINE NEGATIVE (NEG); PROTEIN,URINE NEGATIVE (NEG-TRACE); UROBILINOGEN,URINE 0.2 mg/dL (0.2 mg/dL)
[2021-06-26 17:36] LABS: BARBITURATES NEG (NEG); BENZODIAZEPINES NEG (NEG); CANNABINOIDS NEG (NEG); COCAINE NEG (NEG); METHADONE NEG (NEG); OPIATES POS (NEG); PHENCYCLIDINE NEG (NEG)
[2021-06-26 17:40] LABS: AMPHETAMINE/METHAMPHETAMINE NEG (NEG); HYALINE CASTS, URINE FEW /HPF
[2021-06-26 17:42] LABS: BACTERIA,URINE 0 /HPF (0-FEW); RBC,URINE 0 /HPF (0-2)
[2021-06-26 18:08] LABS: CALCIUM 8.8 mg/dL (8.5-10.1); CREATININE 0.9 mg/dL (0.6-1.0); GFR 78.1; POTASSIUM 3.8 mmol/L (3.5-5.1)
[2021-06-26 18:14] LABS: ALBUMIN 3.5 g/dL (3.4-5.0); ALBUMIN/GLOBULIN RATIO 1.1 (1.0-1.7); TOTAL BILIRUBIN 0.2 mg/dL (0.2-1.0); TOTAL PROTEIN 6.8 g/dL (6.4-8.2)
[2021-06-26 20:09] VITALS: BP 84/49
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
== END 2021-06-26 20:50 | disposition home or self-care (01) ==
LOC: ER 15:24
DX: S00.83XA Contusion of other part of head, initial encounter (principal); S00.212A Abrasion of left eyelid and periocular area, initial encounter; R45.851 Suicidal ideations; F10.229 Alcohol dependence with intoxication, unspecified; G89.29 Other chronic pain; F41.9 Anxiety disorder, unspecified; F31.9 Bipolar disorder, unspecified; M79.7 Fibromyalgia; Z88.6 Allergy status to analgesic agent; Z88.8 Allergy status to other drugs, medicaments and biological substances; Y90.7 Blood alcohol level of 200-239 mg/100 ml; W17.89XA Other fall from one level to another, initial encounter; Y93.89 Activity, other specified; Y92.89 Other specified places as the place of occurrence of the external cause; Y99.8 Other external cause status
CPT/HCPCS: 36415; 70450; 70486; 71045; 72125; 80053; 80307; 81001; 84484; 85025; 87086; 93005; 96360; 99285; G0480; J7030

== ENCOUNTER 2021-08-23 22:57 | Emergency (ER) | payer MEDICARE ==
[~2021-08-23] VITALS: Ht 152.4 cm; Wt 80.5 kg
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
[2021-08-23 23:51] LABS: CREATININE 1.3 mg/dL (0.6-1.0); GFR 51.1; POTASSIUM 3.8 mmol/L (3.5-5.1)
[2021-08-24 00:12] VITALS: BP 173/88
== END 2021-08-24 00:15 | disposition home or self-care (01) ==
LOC: ER 22:57
DX: S00.81XA Abrasion of other part of head, initial encounter (principal); H05.222 Edema of left orbit; H11.32 Conjunctival hemorrhage, left eye; F41.9 Anxiety disorder, unspecified; F31.9 Bipolar disorder, unspecified; G89.29 Other chronic pain; Z88.6 Allergy status to analgesic agent; Z88.8 Allergy status to other drugs, medicaments and biological substances; Y08.89XA Assault by other specified means, initial encounter; Y93.89 Activity, other specified; Y92.89 Other specified places as the place of occurrence of the external cause; Y99.8 Other external cause status
CPT/HCPCS: 36415; 70450; 70486; 72125; 80048; 99284; G0480